=== PATIENT | male | born 1970 | race American Indian/Alaskan Native ===

== ENCOUNTER 2016-12-15 23:53 | Inpatient (IN) | payer OTHER ==
[2016-12-16 00:40] LABS: Basophils % (Auto) 0.4 % (0.0-1.8); Eosinophils % (Auto) 1.2 % (0.0-4.3); Hematocrit 47.2 % (35.5-45.6); Hemoglobin 15.8 gm/dl (11.8-15.2); Mean Corpuscular HGB Conc 33 % (32-34); Mean Corpuscular Hemoglobin 29 pg (28-32); Mean Corpuscular Volume 86 fl (84-94); Platelet Count 257 K/mm3 (140-440); Red Blood Count 5.52 M/mm3 (3.65-5.03); Red Cell Distribution Width 13.9 % (13.2-15.2); White Blood Count 10.6 K/mm3 (4.5-11.0)
[2016-12-16 00:51] LABS: INR 1.04 (0.87-1.13); Partial Thromboplastin Time 29.2 Sec. (24.2-36.6)
[2016-12-16 01:00] LABS: Anion Gap 20 mmol/L; Blood Urea Nitrogen 10 mg/dL (9-20); Calcium 9.7 mg/dL (8.4-10.2); Carbon Dioxide 25 mmol/L (22-30); Chloride 100.2 mmol/L (98-107); Glucose 108 mg/dL (75-100); Potassium 3.9 mmol/L (3.6-5.0); Sodium 141 mmol/L (137-145)
[2016-12-16] MEDS ORDERED: TRIDIL DRIP 50MG/250ML 50 MG/250 ML BOTTLE IV ONE (01:33)
[2016-12-16] MEDS ORDERED: ASPIRIN PO ONE (01:33)
[2016-12-16] MEDS ORDERED: TYLENOL PO ONE (02:19)
--- NOTE | 2016-12-16 02:21 | Emergency Department Report ---
ED Chest Pain HPI - General Chief Complaint: Chest Pain Stated Complaint: CHEST PAIN Time Seen by Provider: 12/16/16 01:33 Source: patient Mode of arrival: Ambulatory Limitations: No Limitations - History of Present Illness Initial Comments: 46-year-old male with no known past medical history but states he has not seen a physician in at least 11 years presents to the hospital with chest tightness and elevated blood pressure. Patient has had intermittent sternal chest tightness 2 days. Occurs at rest. Nonradiating. No aggravating or alleviating factors. Pain rated 5/10 in intensity. Pain became more constant today. He denies associated symptoms included nausea, vomiting, diaphoresis, shortness of breath, calf tenderness, or edema. Denies history of previous stress test, family history CAD. Patient smokes Black and milds but not cigarettes and denies cocaine use. Patient is on probation and cannot have any narcotics for pain. Severity scale (0 -10): 6 - Related Data Previous Rx's Medication Instructions Recorded Last Taken Type amLODIPine [Norvasc] 5 mg PO DAILY #30 tab 06/03/13 Unknown Rx Allergies Allergy/AdvReac Type Severity Reaction Status Date / Time No Known Allergies Allergy Unverified 06/03/13 11:08 Heart Score - HEART Score History: Slightly suspicious EKG: Non-specific Age: < 45 Risk factors: 1-2 risk factors Troponin: 1-3x normal limit HEART Score: 3 ED Review of Systems ROS: Stated complaint: CHEST PAIN Other details as noted in HPI Comment: All other systems reviewed and negative Other: Constitutional: No fevers chills Eyes: No eye pain visual changes ENT: No ear pain or throat pain Neck: Denies pain Respiratory: Denies cough wheezing shortness of breath Cardiovascular: Denies palpitations, syncope GI: Denies abdominal pain, nausea, vomiting, diarrhea : Denies dysuria, urinary frequency, or urgency Musculoskeletal: Denies back pain, joint swelling Skin: Denies rash, lesions, erythema Neurologic: Denies headache, numbness, weakness Psychiatric: Denies suicidal ideation, hallucinations ED Past Medical Hx - Past Medical History Previous Medical History?: No - Surgical History Past Surgical History?: No - Social History Smoking Status: Heavy Tobacco Smoker Substance Use Type: None - Medications Home Medications: Home Medications Medication Instructions Recorded Confirmed Last Taken Type amLODIPine [Norvasc] 5 mg PO DAILY #30 tab 06/03/13 Unknown Rx ED Physical Exam - General Limitations: No Limitations - Eye Eye exam: Present: periorbital tenderness - Other Other exam information: General: No limitations, patient is alert in no acute distress Head exam: Atraumatic, normocephalic Eyes exam: Normal appearance, pupils equal reactive to light, extraocular movements intact ENT: Moist mucous membrane, normal oropharynx Neck exam: Normal inspection, full range of motion, no meningismus nontender Respiratory exam: Clear to auscultation bilateral, no wheezes, rales, crackles Cardiovascular: Normal rate and rhythm, chest wall nontender Abdomen: Soft, nondistended, and nontender, with normal bowel sounds, no rebound, or guarding Extremity: Full range of motion normal inspection no deformity, no calf tenderness or edema Back: Normal Inspection, full range of motion, no tenderness Neurologic: Alert, oriented x3, cranial nerves intact, no motor or sensory deficit Psychiatric: normal affect, normal mood Skin: Warm, dry, intact ED Course Vital Signs 12/16/16 12/16/16 00:03 01:58 Temperature 98.2 F Pulse Rate 59 L 58 L Respiratory 20 18 Rate Blood Pressure 213/121 Blood Pressure 202/108 [Left] O2 Sat by Pulse 100 Oximetry - Reevaluation(s) Reevaluation #1: 12/16/16 02:19 Nitroglycerin initiated for hyertension with associated chest tightness and mild elevation in troponin. Aspirin also provided. Tylenol for pain since patient is on probation and states he cannot have narcotics. 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 Lovenox directly at this time. If troponin continues to trend upward then patient may receive Lovenox only after blood pressure is less than 180 systolic and 100 diastolic. ARTEM score - Artem Score Age > 65: (0) No Aspirin use within the Past 7 Days: (0) No 3 or more CAD Risk Factors: (0) No 2 or more Angina events in past 24 hrs: (1) Yes Known CAD with more than 50% Stenosis: (0) No Elevated Cardiac Markers: (1) Yes ST Deviation Greater than 0.5mm: (0) No ARTEM Score: 2 ED Medical Decision Making - Lab Data Result diagrams: 12/16/16 00:13 12/16/16 00:13 Lab Results 12/16/16 12/16/16 12/16/16 Range/Units 00:13 00:13 00:13 WBC 10.6 (4.5-11.0) K/mm3 RBC 5.52 H (3.65-5.03) M/mm3 Hgb 15.8 H (11.8-15.2) gm/dl Hct 47.2 H (35.5-45.6) % MCV 86 (84-94) fl MCH 29 (28-32) pg MCHC 33 (32-34) % RDW 13.9 (13.2-15.2) % Plt Count 257 (140-440) K/mm3 Lymph % (Auto) 41.8 H (13.4-35.0) % [place] % (Auto) 10.1 H (0.0-7.3) % Eos % (Auto) 1.2 (0.0-4.3) % Baso % (Auto) 0.4 (0.0-1.8) % Lymph # 4.4 (1.2-5.4) K/mm3 [place] # 1.1 H (0.0-0.8) K/mm3 Eos # 0.1 (0.0-0.4) K/mm3 Baso # 0.0 (0.0-0.1) K/mm3 Seg Neutrophils % 46.5 (40.0-70.0) % Seg Neutrophils # 4.9 (1.8-7.7) K/mm3 PT 13.5 (12.2-14.9) Sec. INR 1.04 (0.87-1.13) APTT 29.2 (24.2-36.6) Sec. Sodium 141 (137-145) mmol/L Potassium 3.9 (3.6-5.0) mmol/L Chloride 100.2 (98-107) mmol/L Carbon Dioxide 25 (22-30) mmol/L Anion Gap 20 mmol/L BUN 10 (9-20) mg/dL Creatinine 1.0 (0.8-1.5) mg/dL Estimated GFR > 60 ml/min BUN/Creatinine Ratio 10.00 % Glucose 108 H (75-100) mg/dL Calcium 9.7 (8.4-10.2) mg/dL Troponin T 0.309 H* (0.00-0.029) ng/mL - EKG Data -: EKG Interpreted by Me (sinus netta 55, no stemi) - Radiology Data Radiology results: image reviewed (chest x-ray portable: Narrow mediastinum, no acute findings) - Medical Decision Making Patient being admitted to the hospital for elevated troponin and uncontrolled hypertension. Nitroglycerin drip initiated. Cardiology consulted. Hospitalist was informed. The patient thought to be less likely as as mediastinum is narrow, well defined aortic knob, and patient denies any pain radiation. PE felt to be less likely given the lack of DVT symptoms, shortness of breath, hypoxia, or pleuritic chest pain. - Differential Diagnosis dissection, TX, PE, unstable angina, hypertensive emergency Critical Care Time: No Critical care attestation.: If time is entered above; I have spent that time in minutes in the direct care of this critically ill patient, excluding procedure time. ED Disposition Clinical Impression: Chest pain, Hypertensive emergency, Elevated troponin Disposition: OP ADMIT IP TO THIS HOSP Is pt being admited?: Yes Does the pt Need Aspirin: Yes Condition: Stable Time of Disposition: 02:21 (Dr Domínguez/hosp)
[2016-12-16 02:50] LABS: Cholesterol 237 mg/dL (50-199); HDL Cholesterol 40 mg/dL (40-59); LDL Cholesterol,Direct 163 mg/dL (50-130); Triglycerides 170 mg/dL (2-149)
--- NOTE | 2016-12-16 02:59 | History and Physical Report ---
History of Present Illness Date of examination: 12/16/16 Chief complaint: Chest pain History of present illness: 46 year old -[place] male presented to the emergency department complaining of midsternal chest pain that started 2 days ago. He said the pain is pressure-like, 10 out of 10 in intensity, with no radiation, no associated shortness of breath, palpitation, diaphoresis. She denied nausea, vomiting, palpitation, leg swelling. Patient never saw a doctor for 15 years. Patient denied any medical history that he knew of. REVIEW OF SYSTEMS: GENERAL: no weight change, no fatigue, no fever HEAD: no head ache EYES: no blurry vision, no acute visual loss EARS: no hearing loss, no discharge, no earache NOSE: no stuffiness, no sneezing, no discharge MOUTH, THROAT AND NECK: no bleeding gums, no sore throat, no swollen neck CARDIAC: no palpitations, no dyspnea on exertion, no orthopnea, no PND, no edema , +chest pain RESPIRATORY: no shortness of breath, no wheeze, no cough, no sputum, no hemoptysis, no asthma GI: no decreased appetite, no nausea, no vomiting, no dysphagia, no diarrhea, no constipation, no abdominal pain URINARY: no change in frequency, no urgency, no polyuria, no hematuria, no incontinence MUSCULOSKELETAL: no muscle weakness, no pain, no joint stiffness NEUROLOGIC: no loss of sensation/numbness, no tingling, no tremors, no weakness/ paralysis HEMATOLOGIC: no anemia, no easy bruising SKIN: no rashes ENDOCRINE: no heat/cold intolerance, no polyuria, no polydipsia, no thyroid problems, no diabetes PSYCHIATRIC: no anxiety, no depression, no suicidal ideations Past History Past Medical History: No medical history Past Surgical History: Other (trauma related surgery on his left arm and hand ) Social history: full code. denies: smoking, alcohol abuse, prescription drug abuse, IV drug use Family history: no significant family history Medications and Allergies Allergies Allergy/AdvReac Type Severity Reaction Status Date / Time No Known Allergies Allergy Verified 12/16/16 03:00 Home Medications Medication Instructions Recorded Confirmed Last Taken Type amLODIPine [Norvasc] 5 mg PO DAILY #30 tab 06/03/13 Unknown Rx Active Meds: Active Medications Acetaminophen (Tylenol) 650 mg PO Q4H PRN PRN Reason: Pain, Mild (1-3) Aspirin (Baby Aspirin) 81 mg PO QDAY [facility] Atorvastatin Calcium (Lipitor) 40 mg PO QHS [facility] Nitroglycerin/Dextrose (Tridil Drip 50mg/250ml) 50 mg in 250 mls @ 3 mls/hr IV TITR ONE; 10 MCG/MIN PRN Reason: Protocol Stop: 12/19/16 12:52 Last Titration: 12/16/16 02:15 Dose: 16.66 mcg/min, 5 mls/hr Lisinopril (Zestril) 40 mg PO QDAY [facility] Exam - Physical Exam Narrative exam: Not in cardiopulmonary distress. The patient appeared well nourished and normally developed. Vital signs as documented. Head exam is unremarkable. No scleral icterus . Neck is without jugular venous distension, thyromegaly, or carotid bruits. Lungs are clear to auscultation. Cardiac exam reveals regular rate and Rhythm. First and second heart sounds normal. No murmurs, rubs or gallops. Abdominal exam reveals normal bowel sounds, no masses, no organomegaly and no aortic enlargement. Extremities are nonedematous and both femoral and pedal pulses are normal. 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 No focal weakness. - Constitutional Vitals: Temp Pulse Resp BP Pulse Ox 98.2 F 62 16 173/86 100 12/16/16 00:03 12/16/16 02:38 12/16/16 02:38 12/16/16 02:38 12/16/16 00:03 Results - Labs CBC & Chem 7: 12/16/16 00:13 12/16/16 00:13 Labs: Laboratory Last Values WBC 10.6 K/mm3 (4.5-11.0) 12/16/16 00:13 RBC 5.52 M/mm3 (3.65-5.03) H 12/16/16 00:13 Hgb 15.8 gm/dl (11.8-15.2) H 12/16/16 00:13 Hct 47.2 % (35.5-45.6) H 12/16/16 00:13 MCV 86 fl (84-94) 12/16/16 00:13 MCH 29 pg (28-32) 12/16/16 00:13 MCHC 33 % (32-34) 12/16/16 00:13 RDW 13.9 % (13.2-15.2) 12/16/16 00:13 Plt Count 257 K/mm3 (140-440) 12/16/16 00:13 Lymph % (Auto) 41.8 % (13.4-35.0) H 12/16/16 00:13 [place] % (Auto) 10.1 % (0.0-7.3) H 12/16/16 00:13 Eos % (Auto) 1.2 % (0.0-4.3) 12/16/16 00:13 Baso % (Auto) 0.4 % (0.0-1.8) 12/16/16 00:13 Lymph # 4.4 K/mm3 (1.2-5.4) 12/16/16 00:13 [place] # 1.1 K/mm3 (0.0-0.8) H 12/16/16 00:13 Eos # 0.1 K/mm3 (0.0-0.4) 12/16/16 00:13 Baso # 0.0 K/mm3 (0.0-0.1) 12/16/16 00:13 Seg Neutrophils % 46.5 % (40.0-70.0) 12/16/16 00:13 Seg Neutrophils # 4.9 K/mm3 (1.8-7.7) 12/16/16 00:13 PT 13.5 Sec. (12.2-14.9) 12/16/16 00:13 INR 1.04 (0.87-1.13) 12/16/16 00:13 APTT 29.2 Sec. (24.2-36.6) 12/16/16 00:13 Sodium 141 mmol/L (137-145) 12/16/16 00:13 Potassium 3.9 mmol/L (3.6-5.0) 12/16/16 00:13 Chloride 100.2 mmol/L (98-107) 12/16/16 00:13 Carbon Dioxide 25 mmol/L (22-30) 12/16/16 00:13 Anion Gap 20 mmol/L 12/16/16 00:13 BUN 10 mg/dL (9-20) 12/16/16 00:13 Creatinine 1.0 mg/dL (0.8-1.5) 12/16/16 00:13 Estimated GFR > 60 ml/min 12/16/16 00:13 BUN/Creatinine Ratio 10.00 % 12/16/16 00:13 Glucose 108 mg/dL (75-100) H 12/16/16 00:13 Calcium 9.7 mg/dL (8.4-10.2) 12/16/16 00:13 Troponin T 0.309 ng/mL (0.00-0.029) H* 12/16/16 00:13 Triglycerides 170 mg/dL (2-149) H 12/16/16 00:13 Cholesterol 237 mg/dL (50-199) H 12/16/16 00:13 LDL Cholesterol Direct 163 mg/dL (50-130) H 12/16/16 00:13 HDL Cholesterol 40 mg/dL (40-59) 12/16/16 00:13 Cholesterol/HDL Ratio 5.92 % 12/16/16 00:13 - Imaging and Cardiology EKG: image reviewed (normal sinus rhythm) Assessment and Plan Assessment and plan: Hypertensive emergency Non-STEMI Medication non compliance - Patient is on nitro drip, on ACS protocol - Cardiology consulted and recommended to start him on Lovenox if troponin is trending up and blood pressure is less than 180 x 100 - Started on lisinopril, statin - No narcotics because the patient is on probation DVT prophylaxis -Lovenox Disposition -to ICU The high probability of a clinically significant, sudden or life threatening deterioration of the [CV] system(s) required my full and direct attention, intervention and personal management. The aggregate critical care time was [31 minutes] minutes. This time is in addition to time spent performing reported procedures but includes the following: [x] Data Review and interpretation [x] Patient assessment and monitoring of vital signs [x] Documentation [x] Medication orders and management Advance Directives: Yes VTE prophylaxis?: Chemical Plan of care discussed with patient/family: Yes
[2016-12-16 06:03] LABS: INR 1.04 (0.87-1.13)
--- NOTE | 2016-12-16 09:32 | XRay Report ---
Single view chest: History: Chest pain, hypertension. Findings: Normal cardiomediastinal silhouette. Trachea is midline. No consolidation, pneumothorax or pleural effusion. Impression: No acute cardiopulmonary findings.
[2016-12-16] MEDS: ZESTRIL PO SCH (10:20)
[2016-12-16] MEDS: TYLENOL PO PRN ×2 (10:20→18:27)
[2016-12-16] MEDS: LOVENOX SUB-Q SCH ×2 (10:20→22:27)
[2016-12-16] MEDS ORDERED: ZESTRIL ONE (10:29)
--- NOTE | 2016-12-16 10:57 | Event Note ---
Date: 12/16/16 Pt seen and examined. will cont current management and plan per H and P Continue to have elevated troponin, placed on therapeutic dose of lovenox BP moderately controlled, will wait for further cardiology recommendation
--- NOTE | 2016-12-16 11:39 | Consultation ---
History of Present Illness Consult date: 12/16/16 Consult reason: chest pain History of present illness: 46-year-old -[place] male presented with substernal chest pain which was intense presents to the emergency room no prior history of cardiac complaintsJeff shortness of breath. By time of my vibration patient's symptoms have resolved Past History Past Medical History: No medical history, hypertension Past Surgical History: Other (trauma related surgery on his left arm and hand ) Social history: full code. denies: smoking, alcohol abuse, prescription drug abuse, IV drug use Family history: no significant family history Medications and Allergies Allergies Allergy/AdvReac Type Severity Reaction Status Date / Time No Known Allergies Allergy Verified 12/16/16 03:00 Home Medications Medication Instructions Recorded Confirmed Last Taken Type amLODIPine [Norvasc] 5 mg PO DAILY #30 tab 06/03/13 Unknown Rx Active Meds: Active Medications Acetaminophen (Tylenol) 650 mg PO Q4H PRN PRN Reason: Pain, Mild (1-3) Last Admin: 12/16/16 10:20 Dose: 650 mg Aspirin (Baby Aspirin) 81 mg PO QDAY [facility] Atorvastatin Calcium (Lipitor) 40 mg PO QHS [facility] Enoxaparin Sodium (Lovenox) 100 mg SUB-Q Q12HR [facility] Last Admin: 12/16/16 10:20 Dose: 100 mg Nitroglycerin/Dextrose (Tridil Drip 50mg/250ml) 50 mg in 250 mls @ 3 mls/hr IV TITR ONE; 10 MCG/MIN PRN Reason: Protocol Stop: 12/19/16 12:52 Last Titration: 12/16/16 04:30 Dose: 10 mcg/min, 3 mls/hr Lisinopril (Zestril) 40 mg PO QDAY [facility] Last Admin: 12/16/16 10:20 Dose: 40 mg Review of Systems All systems: negative (chest pain as in history of present illness) Physical Examination Vital Signs Temp Pulse Resp BP Pulse Ox 98.2 F 59 L 20 213/121 100 12/16/16 00:03 12/16/16 00:03 12/16/16 00:03 12/16/16 00:03 12/16/16 00:03 General appearance: no acute distress, well-nourished HEENT: Positive: PERRL, Mucus Membranes Moist Neck: Positive: neck supple, trachea midline Cardiac: Positive: Reg Rate and Rhythm, S1/S2. Negative: Audible Murmur Lungs: Positive: clear to auscultation, Normal Breath Sounds Neuro: Positive: Grossly Intact Abdomen: Positive: Soft, Active Bowel Sounds. Negative: Tender, Distended Male genitourinary: Positive: normal Skin: Positive: Clear Incision: Cardiac Cath Site Musculoskeletal: No Pain, Normal Range of Motion Extremities: Present: normal. Absent: edema Results 12/16/16 00:13 12/16/16 00:13 Coagulation 12/16/16 Range/Units 05:25 PT 13.5 (12.2-14.9) Sec. INR 1.04 (0.87-1.13) EKG interpretations - Telemetry EKG Rhythm: Sinus Rhythm Assessment and Plan 1. Non-ST segment elevation LA 2. Essential hypertension Plan. Currently stable and chest pain-free. Agree with present line of management. Check echocardiogram. Schedule patient for diagnostic left heart catheterization on Sunday.
[2016-12-17] MEDS ORDERED: APRESOLINE IV PRN (02:41)
[2016-12-17] MEDS ORDERED: BABY ASPIRIN PO SCH (02:52)
[2016-12-17] MEDS ORDERED: NORVASC ONE (02:52)
[2016-12-17] MEDS: NORVASC PO SCH ×2 (05:06→10:28)
--- NOTE | 2016-12-17 09:27 | Progress Note ---
Assessment and Plan Hypertensive emergency - s/p NTG drip following admission - BP MODERATELY CONTROLLED with current meds (norvasc, lisinopril) - start low dose BB Non-STEMI - follow 2d echo result -plan for cardiac cath on Sunday - cont asp, statin - cont lovenox therapeutic dose - BB not started as he had brief episode of bradycardia, will initiate at low dose DVT prophylaxis -Lovenox Subjective Date of service: 12/17/16 Interval history: pt seen and examined denies any chest pain or SOB today, tolerating diet Objective - Constitutional Vitals: Vital Signs - 12hr 12/16/16 12/16/16 12/16/16 21:30 21:45 22:00 Temperature Pulse Rate 78 68 57 L Respiratory 22 29 H 28 H Rate Blood Pressure 160/95 160/95 162/93 Blood Pressure [Left] O2 Sat by Pulse 96 94 96 Oximetry 12/16/16 12/16/16 12/16/16 22:15 22:30 22:45 Temperature Pulse Rate 79 65 78 Respiratory 14 31 H 15 Rate Blood Pressure 162/93 150/80 150/80 Blood Pressure [Left] O2 Sat by Pulse 97 98 98 Oximetry 12/16/16 12/16/16 12/16/16 23:00 23:15 23:29 Temperature Pulse Rate 66 70 68 Respiratory 24 26 H 22 Rate Blood Pressure 154/83 154/83 150/80 Blood Pressure [Left] O2 Sat by Pulse 100 96 98 Oximetry 12/16/16 12/16/16 12/17/16 23:31 23:45 00:00 Temperature Pulse Rate 65 66 60 Respiratory 28 H 31 H 27 H Rate Blood Pressure 153/92 153/92 155/91 Blood Pressure [Left] O2 Sat by Pulse 97 98 99 Oximetry 12/17/16 12/17/16 12/17/16 00:15 00:30 00:39 Temperature Pulse Rate 67 69 Respiratory 28 H 27 H 20 Rate Blood Pressure 155/91 159/94 Blood Pressure [Left] O2 Sat by Pulse 98 96 100 Oximetry 12/17/16 12/17/16 12/17/16 00:45 01:00 01:15 Temperature Pulse Rate 86 68 92 H Respiratory 23 25 H 20 Rate Blood Pressure 159/94 137/76 137/76 Blood Pressure [Left] O2 Sat by Pulse 97 95 97 Oximetry 12/17/16 12/17/1612/17/17 01:30 01:45 02:00 Temperature Pulse Rate 68 63 85 Respiratory 26 H 28 H 23 Rate Blood Pressure 155/87 155/87 144/87 Blood Pressure [Left] O2 Sat by Pulse 95 96 95 Oximetry 12/17/16 12/17/16 12/17/16 02:15 02:30 02:45 Temperature Pulse Rate 61 69 61 Respiratory 25 H 28 H 25 H Rate Blood Pressure 144/87 151/90 151/90 Blood Pressure [Left] O2 Sat by Pulse 96 97 96 Oximetry 12/17/16 12/17/16 12/17/16 03:00 03:01 03:15 Temperature Pulse Rate 93 H 85 70 Respiratory 17 27 H Rate Blood Pressure 152/83 151/90 152/83 Blood Pressure [Left] O2 Sat by Pulse 96 98 Oximetry 12/17/16 12/17/16 12/17/16 03:31 03:45 04:00 Temperature Pulse Rate 71 65 64 Respiratory 25 H 30 H 20 Rate Blood Pressure 107/46 107/46 109/61 Blood Pressure [Left] O2 Sat by Pulse 97 100 99 Oximetry 12/17/16 12/17/16 12/17/16 04:15 04:30 04:45 Temperature Pulse Rate 67 67 67 Respiratory 25 H 27 H 27 H Rate Blood Pressure 109/61 124/69 124/69 Blood Pressure [Left] O2 Sat by Pulse 98 96 97 Oximetry 12/17/16 12/17/16 12/17/16 05:00 05:06 05:15 Temperature Pulse Rate 71 81 74 Respiratory 29 H 17 Rate Blood Pressure 112/57 124/65 112/57 Blood Pressure [Left] O2 Sat by Pulse 97 98 Oximetry 12/17/16 12/17/16 12/17/16 05:30 05:45 06:00 Temperature Pulse Rate 68 69 74 Respiratory 26 H 26 H 11 L Rate Blood Pressure 104/53 104/53 109/71 Blood Pressure [Left] O2 Sat by Pulse 96 97 97 Oximetry 12/17/16 12/17/16 06:15 07:36 Temperature 98.9 F Pulse Rate 75 84 Respiratory 27 H 20 Rate Blood Pressure 109/71 Blood Pressure 152/91 [Left] O2 Sat by Pulse 99 99 Oximetry General appearance: Present: no acute distress, well-nourished - EENT Eyes: PERRL, EOM intact ENT: hearing intact, clear oral mucosa Ears: bilateral: normal - Neck Neck: supple, normal ROM - Respiratory Respiratory effort: normal Respiratory: bilateral: CTA - Cardiovascular Rhythm: regular Heart Sounds: Present: S1 & S2. Absent: gallop, rub Extremities: pulses intact, No edema, normal color, Full ROM - Gastrointestinal General gastrointestinal: Present: soft, non-tender, non-distended, normal bowel sounds - Integumentary Integumentary: clear, warm, dry - Musculoskeletal Musculoskeletal: 1, strength equal bilaterally - Neurologic Neurologic: moves all extremities - Psychiatric Psychiatric: memory intact, appropriate mood/affect, intact judgment & insight - Labs CBC & Chem 7: 12/16/16 00:13 12/16/16 00:13
[2016-12-17] MEDS: LOVENOX SUB-Q SCH ×2 (10:27→22:27)
[2016-12-17] MEDS: BABY ASPIRIN PO SCH (10:27)
[2016-12-17] MEDS: ZESTRIL PO SCH (10:27)
--- NOTE | 2016-12-17 10:43 | Progress Note ---
Assessment and Plan 1. Non-ST segment elevation PA 2. Essential hypertension Plan. Currently stable and chest pain-free. Agree with present line of management. Check Echocardiogram. Schedule patient for diagnostic left heart catheterization on Sunday. Subjective Date of service: 12/17/16 Principal diagnosis: Acute PA Interval history: No cardiac symptoms. Objective Vital Signs Temp Pulse Resp BP BP Pulse Ox 12/17/16 09:33 99.2 F 70 20 110/58 98 12/17/16 07:36 98.9 F 84 20 152/91 99 12/17/16 06:15 75 27 H 109/71 99 12/17/16 06:00 74 11 L 109/71 97 12/17/16 05:45 69 26 H 104/53 97 12/17/16 05:30 68 26 H 104/53 96 12/17/16 05:15 74 17 112/57 98 12/17/16 05:06 81 124/65 12/17/16 05:00 71 29 H 112/57 97 12/17/16 04:45 67 27 H 124/69 97 12/17/16 04:30 67 27 H 124/69 96 12/17/16 04:15 67 25 H 109/61 98 12/17/16 04:00 64 20 109/61 99 12/17/16 03:45 65 30 H 107/46 100 12/17/16 03:31 71 25 H 107/46 97 12/17/16 03:15 70 27 H 152/83 98 12/17/16 03:01 85 151/90 12/17/16 03:00 93 H 17 152/83 96 12/17/16 02:45 61 25 H 151/90 96 12/17/16 02:30 69 28 H 151/90 97 12/17/16 02:15 61 25 H 144/87 96 12/17/16 02:00 85 23 144/87 95 12/17/16 01:45 63 28 H 155/87 96 12/17/16 01:30 68 26 H 155/87 95 12/17/16 01:15 92 H 20 137/76 97 12/17/16 01:00 68 25 H 137/76 95 12/17/16 00:45 86 23 159/94 97 12/17/16 00:39 20 100 12/17/16 00:30 69 27 H 159/94 96 12/17/16 00:15 67 28 H 155/91 98 12/17/16 00:00 60 27 H 155/91 99 12/16/16 23:45 66 31 H 153/92 98 12/16/16 23:31 65 28 H 153/92 97 12/16/16 23:29 68 22 150/80 98 12/16/16 23:15 70 26 H 154/83 96 12/16/16 23:00 66 24 154/83 100 12/16/16 22:45 78 15 150/80 98 12/16/16 22:30 65 31 H 150/80 98 12/16/16 22:15 79 14 162/93 97 12/16/16 22:00 57 L 28 H 162/93 96 12/16/16 21:45 68 29 H 160/95 94 12/16/16 21:30 78 22 160/95 96 12/16/16 21:15 63 21 160/94 98 12/16/16 21:00 91 H 18 160/94 96 12/16/16 20:45 67 21 162/96 96 12/16/16 20:30 70 29 H 159/95 97 12/16/16 20:15 62 28 H 159/92 96 12/16/16 20:00 61 23 162/88 97 12/16/16 19:53 20 98 12/16/16 19:45 61 25 H 152/84 97 12/16/16 19:30 77 20 151/93 94 12/16/16 19:27 29 H 12/16/16 19:15 63 26 H 166/88 96 12/16/16 19:01 58 L 26 H 166/88 97 12/16/16 18:45 57 L 29 H 161/92 97 12/16/16 18:30 64 16 161/92 96 12/16/16 18:27 16 12/16/16 18:15 57 L 28 H 158/85 97 12/16/16 18:00 61 28 H 160/92 97 12/16/16 17:45 86 20 152/95 97 12/16/16 17:30 63 22 176/99 99 12/16/16 17:15 59 L 15 151/91 98 12/16/16 17:00 55 L 15 157/89 98 12/16/16 16:45 82 19 147/104 98 12/16/16 16:30 59 L 24 173/95 98 12/16/16 16:15 55 L 13 164/92 94 12/16/16 16:00 57 L 28 H 154/80 96 12/16/16 15:45 59 L 22 156/93 96 12/16/16 15:30 61 25 H 163/97 97 12/16/16 15:15 60 12 166/97 96 12/16/16 15:00 52 L 26 H 164/82 95 12/16/16 14:45 64 22 153/86 95 12/16/16 14:31 55 L 16 144/100 97 12/16/16 14:15 79 17 144/100 99 12/16/16 14:00 71 26 H 159/98 96 12/16/16 13:45 55 L 18 173/98 95 12/16/16 13:30 65 16 155/95 97 12/16/16 13:15 81 19 159/104 96 12/16/16 13:00 55 L 26 H 149/85 97 12/16/16 12:45 52 L 26 H 176/95 97 12/16/16 12:30 64 24 149/86 95 12/16/16 12:15 83 21 172/110 96 12/16/16 12:01 61 13 176/95 94 12/16/16 11:45 63 20 171/102 96 12/16/16 11:30 59 L 16 185/104 98 12/16/16 11:20 16 12/16/16 11:15 58 L 21 188/102 98 12/16/16 11:01 61 23 189/104 97 12/16/16 10:45 79 10 L 155/98 97 - Physical Examination General: Appears Well, No Apparent Distress HEENT: Positive: PERRL, Mucus Membranes Moist Neck: Positive: neck supple, trachea midline Cardiac: Lungs: Neuro: Positive: Grossly Intact Abdomen: Positive: Soft, Active Bowel Sounds. Negative: Tender, Distended /Rectal: Normal Prostate, No Masses Skin: Positive: Clear Incision: Cardiac Cath Site Musculoskeletal: No Pain, Normal Range of Motion Gait: Normal Gait Extremities: Present: normal. Absent: edema - Imaging and Cardiology EKG: image reviewed (normal sinus rhythm)
--- NOTE | 2016-12-17 12:48 | Event Note ---
Date: 12/17/16 Consult placed initially for ICU admission re: vasopressor drips (NTG) for NSTEMI and hypertensive emergency resolved and down graded to telemetrty A&P: Please re-consult if needed
--- NOTE | 2016-12-18 02:26 | Admit Criteria Form ---
Admission Criteria Documentation: ANGINA Clinical Indications for Admission to Inpatient Care (Place 'X' for any and all applicable criteria): Admission is indicated for suspected angina (e.g, chest pain pattern, angina- equivalent symptom, or other finding suggesting unstable angina) with ANY ONE of the following(1)(2)(3)(4)(5): [X]I. Angina needing acute intervention as indicated by ALL of the following ( 11)(12): [X]a) Unstable angina is present as indicated by angina that is ANY ONE of the following: [ ]i) New onset [ ]ii) Nocturnal [ ]iii) Prolonged at rest [X]iv) Progressive [X]b) Angina warrants acute intervention as indicated by ANY ONE of the following: [ ]i) Recurrent angina (e.g, not responding as previously to treatment) [ ]ii) Angina at rest or with low-level activities despite initial medical therapy [ ]iii) New or presumably new ST-segment depression on ECG [ ]iv) Signs or symptoms of heart failure (eg, dyspnea, pulmonary edema) [ ]v) New or worsening mitral regurgitation [ ]vi) Hemodynamic instability [ ]vii) Dangerous arrhythmia (eg, sustained ventricular tachycardia) [ ]viii) History of percutaneous coronary intervention within 6 months [ ]ix) History of coronary artery bypass graft surgery [X]x) ARTEM risk score of 2 or greater[A] [ ]xi) History of Diabetes(14) [ ]xii) High-risk cardiac ischemia findings on noninvasive testing (e.g, echocardiogram, treadmill testing, nuclear scan) [ ]xiii) Chronic renal insufficiency (ie, estimated GFR less than 60 mL/min/1.732m) [ ]xiv) Left ventricular ejection fraction less than 40% [X]II. Evidence of MS (e.g, cardiac biomarkers positive, ST-segment elevation on ECG). Also use Myocardial Infarction. Extended stay beyond goal length of stay may be needed for (1)(26): [ ]a) Intravascular procedural complications such as acute vessel closure, stent malposition, or vessel dissection(27) [ ]b) Extravascular procedural complications such as retroperitoneal hematoma, pericardial effusion, or cardiac tamponade [ ]c) Entry site complications causing bleeding, hematoma, or distal ischemia and requiring ongoing monitoring, surgical repair, or surgical thrombectomy(28) [ ]d) Heart failure [ ]e) Dangerous arrhythmia [ ]f) Hemodynamic instability with persisting symptoms after intensive medical management, or recurring severe prolonged symptoms [ ]g) Postprocedural myocardial infarction or acute renal failure The original [facility] content created by [facility] has been revised. The portions of the content which have been revised are identified through the use of italic text or in bold, and [facility] has neither reviewed nor approved the modified material. All other unmodified content is copyright [facility]. Please see references footnoted in the original [facility] edition 2016 Admission Criteria Met: Yes
[2016-12-18] MEDS: BABY ASPIRIN PO SCH (11:07)
[2016-12-18] MEDS ORDERED: BABY ASPIRIN ONE (11:08)
[2016-12-18] MEDS ORDERED: NACL 0.9% 500 ML 500 ML ONE (12:19)
[2016-12-18] MEDS ORDERED: HEPARIN 10,000 UNITS/10 ML ONE (12:37)
[2016-12-18] MEDS: HEPARIN/NS 5000 UNIT/500ML(CATH LAB) 1,000 ML IR ONE ×2 (12:45→12:52)
[2016-12-18] MEDS: VERSED ONE ×2 (12:51→12:55)
[2016-12-18] MEDS: SUBLIMAZE ONE ×3 (12:51→13:07)
[2016-12-18] MEDS: XYLOCAINE 2% INFILTRATI ONE ×2 (12:51→12:56)
--- NOTE | 2016-12-18 13:09 | Progress Note ---
Assessment and Plan Hypertensive emergency - s/p NTG drip following admission - BP MODERATELY CONTROLLED with current meds (norvasc, lisinopril) - start low dose BB BP well controlled now Non-STEMI - follow 2d echo result -plan for cardiac cath . - cont asp, statin - cont lovenox therapeutic dose - BB not started as he had brief episode of bradycardia, will initiate at low dose. For cath tomorrow DVT prophylaxis -Lovenox Subjective Date of service: 12/18/16 Principal diagnosis: Acute [place] Interval history: Doing well Objective - Constitutional Vitals: Vital Signs - 12hr 12/18/16 04:40 Temperature 98.1 F Pulse Rate 74 Respiratory 16 Rate Blood Pressure 129/76 [Left] O2 Sat by Pulse 99 Oximetry General appearance: Present: no acute distress, well-nourished - EENT Eyes: PERRL, EOM intact ENT: hearing intact, clear oral mucosa Ears: bilateral: normal - Neck Neck: supple, normal ROM - Respiratory Respiratory effort: normal Respiratory: bilateral: CTA - Breasts Breasts: normal - Cardiovascular Heart rate: 76 Rhythm: regular Heart Sounds: Present: S1 & S2. Absent: gallop, rub Extremities: pulses intact, No edema, normal color, Full ROM - Gastrointestinal General gastrointestinal: Present: soft, non-tender, non-distended, normal bowel sounds - Genitourinary Male genitourinary: normal - Integumentary Integumentary: clear, warm, dry - Musculoskeletal Musculoskeletal: 1, strength equal bilaterally - Neurologic Neurologic: moves all extremities - Psychiatric Psychiatric: memory intact, appropriate mood/affect, intact judgment & insight - Labs CBC & Chem 7: 12/16/16 00:13 12/16/16 00:13
[2016-12-18] MEDS ORDERED: PLAVIX PO ONE (13:28)
--- NOTE | 2016-12-18 13:28 | Event Note ---
Date: 12/18/16 CARDIAC CATH COMPLETED, NO COMPLICATIONS. FINDINGS: 1. Subtotal occkusion of small terminal circumflex subbranch. 2. Otherwise mild nonobstructive irregularities in larger caliber vessels. 3. EF normal 55-60%. Recommend: Medical therapy for small veseel disease of the distal circumflex. ASA/Plavix,Imdur, statin and betablocker.
[2016-12-18] MEDS: LOVENOX SUB-Q SCH (13:44)
[2016-12-18] MEDS: LOPRESSOR PO SCH (14:20)
[2016-12-18] MEDS: NORVASC PO SCH (14:20)
[2016-12-18] MEDS: ZESTRIL PO SCH (14:20)
--- NOTE | 2016-12-18 18:37 | Cardiac Catherization Report ---
REASON FOR PROCEDURE: The patient is a 46-year-old man who presented with chest pain and elevated enzymes, suggestive of a non-ST elevation myocardial infarction. A cardiac catheterization was recommended. PROCEDURE: The patient was prepped and draped in a sterile fashion after informed consent. Right femoral artery was entered using the Seldinger technique followed by placement of a 6-Fijian sheath. A selective left and right coronary angiography was performed using #4 right and left Ramírez catheters. The pigtail catheter was used for left ventricle angiography. The catheters were removed, sheath removed, and hemostasis achieved using an Angio-Seal device. The patient was returned to the postprocedure unit in stable condition. There were no complications. FINDINGS: HEMODYNAMICS: Left ventricular end-diastolic pressure was 118, following coronary angiography. Ascending aortic pressure 124/73. There was no significant pressure gradient on pullback across the aortic valve. CORONARY ANGIOGRAPHY: The left main coronary artery was free of significant disease. The left anterior descending artery contained mild disease in its mid segment. There were mild luminal irregularities with less than 30% luminal stenosis. More distally, the distal segment also contained luminal irregularities. The circumflex artery contained mild irregularities, with 20%-30% stenosis of its mid segment. More distally, the terminal obtuse marginal branch of the circumflex artery was noted to have a near complete occlusion of its sub branch. This subtotally occluded sub-branch was a small caliber, less than 1 mm vessel. There was slow antegrade flow in this terminal segment. The right coronary artery was a relatively small caliber, but dominant vessel. This vessel contained mild luminal irregularities in its mid segment, with up to 20%-30% luminal stenosis. Left ventricular systolic function was well preserved, ejection fraction was 55%-60%. CONCLUSION: 1. 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 2. Otherwise, mild nonobstructive irregularities in the large caliber vessels. 3. Normal left ventricular systolic function, ejection fraction of 55%-60%. RECOMMENDATIONS: 1. Medical therapy for small vessel disease of the terminal circumflex branch. 2. Otherwise, risk factor modification for mild nonobstructive disease. [facility]# [id number] CA/NTS
--- NOTE | 2016-12-18 23:01 | Progress Note ---
Assessment and Plan No complaint of chest pain or shortness of breath,O2 saturation 99% on room air. - Patient Problems (1) Chest pain Current Visit: Yes Status: Acute Qualifiers: Chest pain type: C Ischemic chest pain type: I Plan to address problem: Improved. anagement as per cardiology. (2) Hypertensive emergency Current Visit: Yes Status: Acute Plan to address problem: Management as per primary care. Subjective Date of service: 12/18/16 Principal diagnosis: Acute [place] Interval history: No complaint of chest pain or shortness of breath,O2 saturation 99% on room air. Objective Vital Signs - 12hr 12/18/16 12/18/16 13:34 14:17 Temperature 98.0 F Pulse Rate 69 69 Respiratory 18 Rate Blood Pressure 137/88 116/70 Constitutional: no acute distress, alert Eyes: non-icteric ENT: oropharynx moist Neck: supple, no lymphadenopathy Ascultation: Bilateral: clear Cardiovascular: regular rate and rhythm Gastrointestinal: normoactive bowel sounds, soft, non-tender Integumentary: normal Extremities: no cyanosis, no edema Neurologic: normal mental status, non-focal exam, pupils equal and round, CN II- XII normal Psychiatric: mood appropriate CBC and BMP: 12/16/16 00:13 12/16/16 00:13 ABG, PT/INR, D-dimer: PT/INR, D-dimer PT 13.5 Sec. (12.2-14.9) 12/16/16 05:25 INR 1.04 (0.87-1.13) 12/16/16 05:25 Abnormal lab findings: Abnormal Labs 12/16/16 12/16/16 12/16/16 02:55 05:25 07:09 Troponin T 0.374 H* D 0.454 H* D 0.513 H* Chest x-ray: report reviewed (No acute cardiumonary findings.)
[2016-12-19] MEDS ORDERED: PLAVIX PO SCH (10:00)
[2016-12-19] MEDS: ZESTRIL PO SCH (10:44)
[2016-12-19] MEDS: BABY ASPIRIN PO SCH (10:45)
[2016-12-19] MEDS: LOPRESSOR PO SCH (10:45)
[2016-12-19] MEDS: NORVASC PO SCH (10:45)
[2016-12-19] MEDS: LOVENOX SUB-Q SCH (10:45)
--- NOTE | 2016-12-19 14:12 | Progress Note ---
Assessment and Plan - Patient Problems (1) Chest pain Current Visit: Yes Status: Acute Qualifiers: Chest pain type: C Ischemic chest pain type: I Plan to address problem: Patient suffered a non-ST elevation myocardial infarction, cardiac catheterization revealed subtotal occlusion of a very small caliber terminal branch of the circumflex artery, recommended for medical therapy. He is stable for cardiac discharge on medications as previously outlined. Outpatient follow-up in our office one to 2 weeks. Subjective Date of service: 12/19/16 Principal diagnosis: Acute [place] Interval history: Patient is comfortable, no new cardiac complaints. There is no further chest pain. Objective Vital Signs Temp Pulse Resp BP BP Pulse Ox 12/19/16 12:14 99.0 F 62 16 129/76 100 12/19/16 12:09 98.9 F 61 16 111/71 97 12/19/16 09:43 99.6 F 74 69 H 125/74 98 12/19/16 05:07 98.1 F 70 16 113/72 99 12/19/16 04:10 54 L 12/18/16 14:17 69 116/70 - Physical Examination General: Appears Well, No Apparent Distress HEENT: Positive: PERRL, Mucus Membranes Moist Neck: Positive: neck supple, trachea midline Cardiac: Positive: Reg Rate and Rhythm Lungs: Positive: Decreased Breath Sounds Neuro: Positive: Grossly Intact Abdomen: Positive: Soft, Active Bowel Sounds. Negative: Tender, Distended /Rectal: Normal Prostate, No Masses Skin: Positive: Clear Incision: Cardiac Cath Site Musculoskeletal: No Pain, Normal Range of Motion Gait: Normal Gait Extremities: Present: normal. Absent: edema - Imaging and Cardiology EKG: image reviewed (normal sinus rhythm)
--- NOTE | 2016-12-19 14:25 | Discharge Summary ---
Providers - Providers Date of Admission: 12/16/16 02:49 Date of discharge: 12/19/16 Attending physician: PRESLEY TONY 12/16/16 Consult to Cardiac Rehabilitation [CONS] Routine Reason For Exam: Phase 1 12/16/16 03:14 Consult to Physician [CONS] Routine Consulting Provider: MOON ZAPATA Reason For Exam: ICU Admission Place consult to:: Dr. Zapata Notified:: Answering Service Phone number called:: [phone] Was contact made?: No Primary care physician: RISK MGR Hospitalization Condition: Stable Disposition: DC-01 TO HOME OR SELFCARE Time spent for discharge: 35 min Core Measure Documentation - Palliative Care Palliative Care/ Comfort Measures: Not Applicable - Core Measures Any of the following diagnoses?: acute SD - Acute SD Discharge Requirements Aspirin at discharge: Yes FRANCESCO/ARB for LVSD if EF <40%: Yes Beta collins at discharge: Yes Statin for LDL = or >100 mg/dl on DC: Yes Exam - Constitutional Vitals: Temp Pulse Resp BP Pulse Ox 99.0 F 62 16 129/76 100 12/19/16 12:14 12/19/16 12:14 12/19/16 12:14 12/19/16 12:14 12/19/16 12:14 Plan Activity: advance as tolerated Diet: low cholesterol, low salt Follow up with: NEO MCCARTHY MD [Primary Care Provider] - 7 Days NATHANAEL OTERO MD [Staff Physician] - 14 Days Prescriptions: AtorvaSTATin [Lipitor] 40 mg PO QHS #30 tablet Aspirin [Aspirin BABY CHEW TAB] 81 mg PO QDAY #30 tab.chew Clopidogrel [Plavix] 75 mg PO QDAY #30 tablet ISOSORBIDE MONOnitrate [Imdur ER] 30 mg PO QDAY #30 tablet Lisinopril [Zestril TAB] 40 mg PO QDAY #30 tablet Metoprolol [Lopressor TAB] 12.5 mg PO BID #30 tablet
[2016-12-19] MEDS ORDERED: IMDUR PO SCH (15:00)
[2016-12-19 15:47] VITALS: BP 89/68
== END 2016-12-19 18:31 | disposition home or self-care (01) | DRG 281 ==
LOC: ED 23:53 → CC1 12-16 02:49 → 4A 12-17 02:46
PROVIDERS: ADMIT Internal Medicine; ATTEND Internal Medicine
PROC: 4A023N7 Measurement of Cardiac Sampling and Pressure, Left Heart, Percutaneous Approach (ICD-10-PCS; principal; 2016-12-18)
PROC: B2151ZZ Fluoroscopy of Left Heart using Low Osmolar Contrast (ICD-10-PCS; 2016-12-18)
PROC: B2111ZZ Fluoroscopy of Multiple Coronary Arteries using Low Osmolar Contrast (ICD-10-PCS; 2016-12-18)
DX: I21.4 Non-ST elevation (NSTEMI) myocardial infarction (principal); I16.1 Hypertensive emergency; I10 Essential (primary) hypertension; F17.200 Nicotine dependence, unspecified, uncomplicated; Z82.49 Family history of ischemic heart disease and other diseases of the circulatory system; Z91.14 Patient's other noncompliance with medication regimen
CPT/HCPCS: 36415; 71010; 80048; 80061; 82962; 84484; 85025; 85610; 85730; 93005; 93010; 93306; 93458; 99406; A9270-GY; C1760; C1894; J0360; J1644; J1650; J2250; J3010; J7040; Q9967